=== PATIENT | female | born 1960 | race Caucasian/White ===

== ENCOUNTER 2021-06-14 10:52 | Outpatient (CLI) | payer BC | END 2021-06-14 10:53 | disposition home or self-care (01) | LOC: BICMAMMO 10:52 | PROVIDERS: ATTEND Physician Assistant | DX: Z12.31 Encounter for screening mammogram for malignant neoplasm of breast (principal); Z80.3 Family history of malignant neoplasm of breast | CPT/HCPCS: 77063; 77067 ==

== ENCOUNTER 2022-06-19 14:26 | Outpatient (CLI) | payer BC | END 2022-06-19 14:27 | disposition home or self-care (01) | LOC: BICMAMMO 14:26 | PROVIDERS: ATTEND Family Medicine | DX: Z12.31 Encounter for screening mammogram for malignant neoplasm of breast (principal); Z80.3 Family history of malignant neoplasm of breast | CPT/HCPCS: 77063; 77067 ==

== ENCOUNTER 2023-07-12 10:43 | Outpatient (CLI) | payer OTHER | END 2023-07-12 10:44 | disposition home or self-care (01) | LOC: BICMAMMO 10:43 | PROVIDERS: ATTEND Family Medicine | DX: Z12.31 Encounter for screening mammogram for malignant neoplasm of breast (principal); Z80.3 Family history of malignant neoplasm of breast | CPT/HCPCS: 77063; 77067 ==

== ENCOUNTER 2023-09-09 12:59 | Outpatient (CLI) | payer OTHER | END 2023-09-09 13:00 | disposition home or self-care (01) | PROVIDERS: ATTEND Internal Medicine Interventional Cardiology | DX: Z13.6 Encounter for screening for cardiovascular disorders (principal); R06.02 Shortness of breath; R42 Dizziness and giddiness | CPT/HCPCS: 93017; 93880 ==

== ENCOUNTER 2023-09-23 12:34 | Outpatient (CLI) | payer OTHER | END 2023-09-23 12:35 | disposition home or self-care (01) | LOC: ULT 12:34 | PROVIDERS: ATTEND Internal Medicine Interventional Cardiology | DX: Z13.6 Encounter for screening for cardiovascular disorders (principal); R06.02 Shortness of breath; R42 Dizziness and giddiness; I08.1 Rheumatic disorders of both mitral and tricuspid valves | CPT/HCPCS: 93306 ==

== ENCOUNTER 2024-07-20 10:45 | Outpatient (CLI) | payer OTHER | END 2024-07-20 10:46 | disposition home or self-care (01) | LOC: BICMAMMO 10:45 | PROVIDERS: ATTEND Family Medicine | DX: Z12.31 Encounter for screening mammogram for malignant neoplasm of breast (principal); Z80.3 Family history of malignant neoplasm of breast | CPT/HCPCS: 77063; 77067 ==